=== PATIENT | female | born 1965 | race Caucasian/White ===

== ENCOUNTER 2024-03-08 12:41 | Emergency (ER) | payer BC ==
[2024-03-08 13:10] LABS: BASOPHILS ABSOLUTE AUTO 0.06 10^3/uL (0.00-0.10); EOSINOPHILS ABSOLUTE AUTO 0.07 10^3/uL (0.10-0.30); EOSINOPHILS PERCENT AUTO 1.2 % (1.0-3.0); HEMATOCRIT 37.3 % (37.0-47.0); HEMOGLOBIN 12.8 g/dL (12.0-16.0); LYMPHOCYTES ABSOLUTE AUTO 1.91 10^3/uL (1.00-4.00); LYMPHOCYTES PERCENT AUTO 32.8 % (20.0-40.0); MEAN CORPUSCULAR HEMOGLOBIN 30.7 pg (27.0-31.0); MEAN CORPUSCULAR HGB CONC 34.3 g/dL (32.0-36.0); MEAN CORPUSCULAR VOLUME 89.4 fL (82.0-92.0); MEAN PLATELET VOLUME 8.2 fL (7.4-10.4); MONOCYTES ABSOLUTE AUTO 0.42 10^3/uL (0.10-0.80); MONOCYTES PERCENT AUTO 7.2 % (2.0-8.0); NEUTROPHILS ABSOLUTE AUTO 3.37 10^3/uL (2.50-7.00); NEUTROPHILS PERCENT AUTO 57.8 % (50.0-70.0); PLATELET COUNT,PLT 240 10^3/uL (150-400); RED BLOOD CELL COUNT 4.17 10^6/uL (3.80-5.50); RED CELL DISTRIBUTION WIDTH 11.7 % (11.5-14.5); WHITE BLOOD CELL COUNT,WBC 5.83 10^3/uL (5.00-10.00)
[2024-03-08 13:30] LABS: ALANINE AMINOTRANSFERASE,ALT 22 U/L (14-63); ALBUMIN 3.62 g/dL (3.40-5.00); ALKALINE PHOSPHATASE 68 U/L (46-116); ANION GAP 9.7 mmol/L (5-15); ASPARTATE AMNIOTRANSFERASE,AST 18 U/L (15-37); BILIRUBIN TOTAL 0.3 mg/dL (0.2-1.0); BLOOD UREA NITROGEN,BUN 20 mg/dL (7-18); CARBON DIOXIDE,CO2 31.5 mmol/L (21.0-32.0); CHLORIDE,CL 102 mmol/L (98-107); CREATININE 0.75 mg/dL (0.51-1.17); EST CRCL DRUG DOSING (CG) 83.36 mL/min; GLUCOSE RANDOM 80 mg/dL (70-140); POTASSIUM,K 4.2 mmol/L (3.5-5.1); SODIUM,NA 139 mmol/L (136-145)
[2024-03-08 13:31] LABS: ESTIMATED GFR 91 mL/min (>=60)
== END 2024-03-08 15:33 | disposition home or self-care (01) ==
LOC: KA.ED 12:41
DX: R07.9 Chest pain, unspecified (principal); R00.2 Palpitations; Z79.899 Other long term (current) drug therapy; Z88.8 Allergy status to other drugs, medicaments and biological substances
CPT/HCPCS: 36415; 80053; 84484; 85025; 93010; 99284; 99285